=== PATIENT | female | born 2005 | race Caucasian/White ===

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

== ENCOUNTER → 2025-01-19 | Outpatient (CLI) | payer SELFPAY | LOC: LAB 18:02 → LAB SHORT 18:02 | PROVIDERS: Advanced Practice Midwife | DX: Z01.419 Encounter for gynecological examination (general) (routine) without abnormal findings (principal) | CPT/HCPCS: G0123 ==

== ENCOUNTER → 2025-05-22 | Outpatient (CLI) | payer BC ==
[2025-05-22 14:49] LABS: Source, Urine Clean Catch
[2025-05-22 17:42] LABS: Red Blood Cells, Urine Not Seen /hpf (0-2); White Blood Cells, Urine 0-2 /hpf (0-5)
== END ==
LOC: LAB 14:46 → LAB SHORT 14:46
PROVIDERS: Obstetrics & Gynecology
DX: Z34.01 Encounter for supervision of normal first pregnancy, first trimester (principal)
CPT/HCPCS: 81015; 87086

== ENCOUNTER → 2025-10-04 | Outpatient (CLI) | payer BC | END | disposition home or self-care (01) | LOC: LAB 16:18 → LAB SHORT 16:18 | DX: O09.93 Supervision of high risk pregnancy, unspecified, third trimester (principal) | CPT/HCPCS: 87081; 87150 ==